=== PATIENT | female | born 1985 | race African-American/Black ===

== ENCOUNTER 2018-07-22 10:20 | Inpatient (IN) | payer BC ==
[2018-07-22] MEDS ORDERED: Lidocaine 2% MPF 10 ML AMP (For Epidural Use) ONE (11:00)
[2018-07-22 11:23] VITALS: BMI 33.5
[2018-07-22] MEDS ORDERED: Ondansetron PF 4 MG/2 ML Vial ONE (12:03)
[2018-07-22] MEDS ORDERED: Ibuprofen 800 MG TAB PO PRN (12:29)
[2018-07-22] MEDS ORDERED: Lidocaine 1% (PF) 30 ML VIAL SC PRN (12:29)
[2018-07-22] MEDS ORDERED: Butorphanol Tartrate 1 MG/ML VIAL SLOW IVP PRN (12:29)
[2018-07-22] MEDS ORDERED: HYDROcodone/Acetaminophen 5/325 mg Tablet PO PRN ×3 (12:29→20:13)
[2018-07-22] MEDS ORDERED: Ondansetron PF 4 MG/2 ML Vial IVP PRN ×3 (12:29→20:13)
[2018-07-22] MEDS ORDERED: Promethazine HCl 25 MG/ML VIAL IM PRN ×2 (12:29→15:18)
[2018-07-22] MEDS ORDERED: Acetaminophen 500 MG TAB PO PRN (12:29)
[2018-07-22] MEDS ORDERED: Lactated Ringer's 1,000 ML IV SCH (12:30)
[2018-07-22] MEDS ORDERED: Calcium Carbonate 500 MG ChewTAB PO PRN (12:37)
[2018-07-22 12:40] LABS: Hemoglobin 12.7 g/dL (12.0-16.0); Mean Corpuscular Hemoglobin 30.2 pg (27.0-31.0); Mean Corpuscular Volume 88.8 fL (78.0-98.0); Mean Platelet Volume 10.6 fL (7.4-10.4); Platelet Count 188 thou/uL (130-400); RBC Distribution Width 12.9 % (11.5-14.5); White Blood Cell (WBC) Count 10.1 thou/uL (4.8-10.8)
[2018-07-22 13:07] LABS: Hep B Surf Ag Non-Reactive S/CO (NonReactive)
[2018-07-22 13:41] LABS: Syphilis Antibody Nonreactive (Nonreactive); Syphilis Antibody Index 0.04 S/CO (<1.00 Non-Reactive)
[2018-07-22] MEDS ORDERED: Fentanyl 4 mcg/Bup 0.1% Cadd 100 ML ONE (14:19)
[2018-07-22] MEDS ORDERED: Lidocaine 1.5%/Epinephrine 1:200,000 5 ML AMPUL IJ ONE (14:20)
[2018-07-22] MEDS ORDERED: ePHEDrine/0.9% NaCl/PF SYRINGE 50 mg/10 ml SLOW IVP PRN (15:18)
[2018-07-22] MEDS ORDERED: Eucerin (Mineral Oil/Petrolatum,White) 30 gm Jar TOP PRN (15:18)
[2018-07-22] MEDS ORDERED: Naloxone HCl 0.4 mg/ml Vial IVP PRN ×2 (15:18)
[2018-07-22] MEDS ORDERED: Acetaminophen 325 MG TAB PO PRN (15:18)
[2018-07-22] MEDS ORDERED: diphenhydrAMINE 50 MG/ML VIAL IVP PRN (15:18)
[2018-07-22] MEDS ORDERED: Lactated Ringer's 500 ML IV PRN (15:18)
[2018-07-22] MEDS ORDERED: Fentanyl 4 mcg/Bupivacaine 0.1% Cassette 100 ML EPIDURAL SCH (15:30)
[2018-07-22] MEDS ORDERED: Communication Order-Pharmacy FS SCH (15:30)
[2018-07-22] MEDS ORDERED: NS w/ Oxytocin 10 units 500 ML ONE (19:02)
[2018-07-22] MEDS: NS / Oxytocin 40 units/1000ml 1,000 ML IV PRN ×2 (19:39→21:22)
[2018-07-22] MEDS ORDERED: Lanolin Ointment 7 GM TUBE TOP PRN (20:13)
[2018-07-22] MEDS ORDERED: Adacel (T-DAP) 0.5 ML SYRINGE IM ONE (20:13)
[2018-07-22] MEDS ORDERED: Bisacodyl 10 MG SUPP PR PRN (20:13)
[2018-07-22] MEDS ORDERED: Milk Of Magnesia 30 ML UDCUP PO PRN (20:13)
[2018-07-22] MEDS ORDERED: Preparation H Ointment 28 GM TUBE PR PRN (20:13)
[2018-07-22] MEDS ORDERED: NS / Oxytocin 40 units/1000ml 1,000 ML IV SCH (20:15)
[2018-07-22] MEDS: Lactated Ringer's 1,000 ML IV SCH (23:45)
[2018-07-23] MEDS: Ibuprofen 800 MG TAB PO SCH ×4 (02:13→21:02)
[2018-07-23] MEDS: Docusate Calcium (SURFAK) 240 MG CAP PO SCH ×3 (02:13→21:02)
[2018-07-23] MEDS: Prenatal Vitamin 1 TAB PO SCH (09:11)
--- NOTE | 2018-07-23 12:52 | DN ---
DATE OF PROCEDURE: 07/22/2018 ADMITTING DIAGNOSES: 1. A 32-year-old, G2, P0-0-1-0 at 36 weeks and three days, inactive labor. 2. GBS negative. 3. History of low-lying placenta with resolution at subsequent ultrasound. 4. History of loop electrosurgical excision procedure. POSTOPERATIVE DIAGNOSES: 1. delivery at 36 weeks and three days. 2. GBS negative. 3. Second-degree laceration with repair. 4. Live-born female weighing 6 pounds 8 ounces with Apgars of 8 and 9 at 1 and 5 minutes respectively. ANESTHESIA: Epidural. PROCEDURE: Spontaneous vaginal delivery. CLINICAL HISTORY: This patient is a 32-year-old female, who has had an OB course complicated only by a low-lying placenta and anemia in the . She was noted to have a negative GBS status on her 35 week exam. She was also noted to have a dilation of 3 cm, 80% effaced, and -3 station. The patient was seen two days following and had progressed to 5 cm, 80% effaced, and -2 station. She has not complained of contractions, only minor cramping the entirety of the time between. The patient was sent to Labor and Delivery for admission and continued management of labor. She had desires for natural delivery; however, once the amniotomy was performed for clear fluid, she continued to progress with her contractions and continued to advanced her cervical dilation. She requested an epidural for maternal analgesia and after this was placed, she was comfortable. She progressed to complete cervical dilation and +2 station and with good maternal effort, was able to push the vertex to . PROCEDURE IN DETAIL: The head was delivered in the BORA position followed by the anterior shoulder, then the posterior shoulder, and remainder of the 's body. A terminal meconium was noted at the time of delivery. The cord was doubly clamped and then cut by the and then the was placed on maternal abdomen for continued stimulation. The placenta was delivered spontaneously intact with a three-vessel cord and was discarded as medical waste. Exploration of the vagina introitus and the cervix revealed a laceration of the midline that required a second-degree repair with excellent hemostasis at the completion. The patient tolerated procedure well and she was able to recover on Labor and Delivery in satisfactory condition with her infant. Again, the infant was a female, weighing 6 pounds 8 ounces. Apgars of 8 and 9 at 1 and 5 minutes respectively. There were no other issues surrounding this delivery. Job ID: [id number]
[2018-07-23] MEDS: Ferrous Sulfate 325 MG TAB PO SCH ×2 (14:47→16:42)
[2018-07-24] MEDS: Ibuprofen 800 MG TAB PO SCH ×2 (05:45→13:33)
[2018-07-24] MEDS: Ferrous Sulfate 325 MG TAB PO SCH ×2 (08:41→17:24)
[2018-07-24] MEDS: Docusate Calcium (SURFAK) 240 MG CAP PO SCH (08:44)
[2018-07-24] MEDS: Prenatal Vitamin 1 TAB PO SCH (08:44)
[2018-07-24 11:01] VITALS: BP 129/73; TEMP 98.3
== END 2018-07-24 19:05 | disposition home or self-care (01) | DRG 807 ==
LOC: L&D 10:20 → 3SW 07-23 15:24 → EDSTATUS 08-14 10:16
PROVIDERS: ADMIT Obstetrics & Gynecology; ATTEND Obstetrics & Gynecology
PROC: 10E0XZZ Delivery of Products of Conception, External Approach (ICD-10-PCS; principal; 2018-07-22)
PROC: 0KQM0ZZ Repair Perineum Muscle, Open Approach (ICD-10-PCS; 2018-07-22)
DX: O60.14X0 Preterm labor third trimester with preterm delivery third trimester, not applicable or unspecified (principal); Z37.0 Single live birth; Z3A.36 36 weeks gestation of pregnancy; O70.1 Second degree perineal laceration during delivery; O77.0 Labor and delivery complicated by meconium in amniotic fluid
CPT/HCPCS: 36415; 85027; 86780; 86850; 86900; 86901; 87340; 90715; J2001; J2405; J3490